=== PATIENT | female | born 1990 | race Caucasian/White ===

== ENCOUNTER 2021-10-31 06:11 | Emergency (ER) | payer OTHER ==
[~2021-10-31] VITALS: Ht 157.5 cm; Wt 77.6 kg
[2021-10-31 06:12] VITALS: BP 121/71
[2021-10-31] MEDS ORDERED: ALBUTEROL INHALER 90MCG/INH IH ONE (07:00)
[2021-10-31] MEDS ORDERED: IBUPROFEN 600 MG TABLET PO ONE (07:00)
[2021-10-31] MEDS ORDERED: ALBU8.5H8 IH (07:42)
[2021-10-31] MEDS ORDERED: ACET-66 PO (07:42)
== END 2021-10-31 07:53 ==
LOC: EDH 06:11
DX: U07.1 COVID-19 (principal); J06.9 Acute upper respiratory infection, unspecified; J45.909 Unspecified asthma, uncomplicated; F32.A Depression, unspecified; Z88.1 Allergy status to other antibiotic agents
CPT/HCPCS: 87635; 87804 ×2; 87880; 99283; C9803